=== PATIENT | female | born 1955 | race Caucasian/White ===

== ENCOUNTER 2017-07-23 08:44 | Emergency (ER) | payer BC ==
--- NOTE | 2017-07-23 08:59 | EDM.PDOC ---
ED HPI GENERAL MEDICAL PROBLEM - General Chief Complaint: Neuro Symptoms/Deficits Stated Complaint: R SIDE FACIAL NUMBNESS Time Seen by Provider: 07/23/17 08:54 Source of Information: Reports: Patient, Family (spouse) History Limitations: Reports: No Limitations - History of Present Illness INITIAL COMMENTS - FREE TEXT/NARRATIVE: 62-year-old female presents to the ED with nonspecific symptoms with right facial paresthesias particularly in the nasolabial fold on the right side and cheek. She then appreciated numbness and tingling in the distribution of third and fourth fingers of her right hand. She's been typing emails prior to the development of symptoms that occurred about 0815 hrs. this morning. No associated headache nausea vomiting. She feels that she has lost part of her peripheral vision on the right eye. Is normal. She did drink this morning with signs of choking. No history of CVA or hypertension. Patient has no associated headache has no history of migraines. Upon walking there was no problems with her balance. She did not require assistance to getting out of the car etc. no recent falls or closed head injuries. Onset: Today Onset Date: 07/23/17 Onset Time: 08:15 Duration: Minutes: Location: Reports: Face, Upper Extremity, Right (Right hand. The third and fourth fingers were suffering numbness and tingling.) Severity: Mild Improves with: Reports: None Worsens with: Reports: None Context: Denies: Activity, Exercise, Lifting, Sick Contact, Trauma, Other Associated Symptoms: Denies: No Other Symptoms, Confusion, Chest Pain, Cough, cough w sputum, Diaphoresis, Fever/Chills, Headaches, Loss of Appetite, Malaise , Nausea/Vomiting, Rash, Seizure, Shortness of Breath, Syncope, Weakness Treatments BASKET MENDER: Reports: Other (see below) (None.) - Related Data Allergies Allergy/AdvReac Type Severity Reaction Status Date / Time No Known Allergies Allergy Verified 07/23/17 09:12 Home Meds: Home Meds . [No Known Home Meds] 07/23/17 [History] Social & Family History - Living Situation & Occupation Living situation: Reports: ED ROS GENERAL - Review of Systems Review Of Systems: See Below Constitutional: Denies: Fever, Chills, Malaise, Weakness, Fatigue, Night Sweats , Diaphoresis, Decreased Appetite, Weight Loss HEENT: Reports: No Symptoms, Vision Change (She feels that there is some blurriness of her right lateral visual field.). Denies: Ear Discharge, Ear Pain , Eye Discharge, Eye Pain, Glasses, Hearing Loss, Nosebleed, Nose Pain, Rhinitis , Sinus Problem, Throat Pain, Throat Swelling Respiratory: Reports: No Symptoms Cardiovascular: Reports: No Symptoms Endocrine: Reports: No Symptoms GI/Abdominal: Reports: No Symptoms : Reports: No Symptoms Musculoskeletal: Reports: No Symptoms Skin: Reports: No Symptoms Neurological: Reports: Other (Came to the ED because of developing numbness and tingling in the right side of her face particularly in the nasolabial fold and over the right facial cheek. However sensation appeared to be intact on examination. Smile was normal. She also had some numbness and tingling in the third and fourth fingers of her right hand but she never tested to see if that would work distal type.) Psychiatric: Reports: No Symptoms Hematologic/Lymphatic: Reports: No Symptoms Immunologic: Reports: No Symptoms ED EXAM, NEURO - Physical Exam Exam: See Below Exam Limited By: No Limitations General Appearance: Alert, WD/WN, Anxious, Mild Distress Eye Exam: Bilateral Eye: Normal Fundi, Normal Inspection, PERRL Nose: Normal Inspection Throat/Mouth: Normal Inspection, Normal Lips, Normal Teeth, Normal Gums, Normal Oropharynx Head Exam: Atraumatic, Normocephalic Neck: Normal Inspection, Supple, Non-Tender, Full Range of Motion. No: Lymphadenopathy (L), Lymphadenopathy (R) Respiratory/Chest: No Respiratory Distress, Lungs Clear, Normal Breath Sounds, No Accessory Muscle Use Cardiovascular: Normal Peripheral Pulses, Regular Rate, Rhythm, No Edema, No Gallop, No JVD, No Murmur, No Rub GI/Abdominal: Normal Bowel Sounds, Soft, Non-Tender, No Organomegaly, No Distention, No Abnormal Bruit, No Mass, Pelvis Stable Neurological: Alert, Normal Mood/Affect, Normal Dorsiflexion, CN II-XII Intact, Normal Plantar Flexion, Normal Gait, Normal Reflexes, No Motor/Sensory Deficits , Oriented x 3, Other (Operator Assistant I Cementing strength is equal bilaterally). No: Abnormal Finger to Nose ( finger to nose assessment is normal. Rapid altering movements is normal there is no pronator drift.), Abnormal Motor Back Exam: Normal Inspection, Full Range of Motion Extremities: Normal Inspection, Normal Range of Motion, Non-Tender, No Pedal Edema Psychiatric: Normal Affect, Normal Mood Skin Exam: Warm, Dry, Intact, Normal Color, No Rash EKG INTERPRETATION EKG Date: 07/23/17 Time: 10:00 Rhythm: NSR Rate (Beats/Min): 75 Isabella: Normal P-Wave: Present QRS: Normal ST-T: Normal QT: Prolonged (mildly) EKG Interpretation Comments: Borderline ECG Course - Vital Signs Last Recorded V/S: Last Vital Signs Temp 36.9 C 07/23/17 09:09 Pulse 89 07/23/17 09:09 Resp 12 07/23/17 09:09 BP 163/109 H 07/23/17 09:09 Pulse Ox 99 07/23/17 09:09 - Orders/Labs/Meds Orders: Active Orders 24 hr Category Date Time Status EKG Documentation Completion [RC] STAT Care 07/23/17 09:10 Active Labs: Laboratory Tests 07/23/17 07/23/17 07/23/17 Range/Units 08:54 09:05 09:05 WBC 8.29 (3.98-10.04) K/mm3 RBC 4.51 (3.98-5.22) M/mm3 Hgb 14.0 (11.2-15.7) gm/L Hct 42.0 (34.1-44.9) % MCV 93.1 (79.4-94.8) fl MCH 31.0 (25.6-32.2) pg MCHC 33.3 (32.2-35.5) g/dl RDW Std Deviation 44.6 (36.4-46.3) fL Plt Count 286 (182-369) K/mm3 MPV 9.6 (9.4-12.3) fl Neutrophils % (Manual) 72 H (40-60) % Band Neutrophils % 0 (0-10) % Lymphocytes % (Manual) 23 (20-40) % Atypical Lymphs % 0 % Monocytes % (Manual) 2 (2-10) % Eosinophils % (Manual) 0 L (0.7-5.8) % Basophils % (Manual) 3 H (0.1-1.2) Platelet Estimate Adequate RBC Morph Comment Normal ESR (0-20) mm/hr PT 10.7 (8.0-13.0) SECONDS INR 0.98 APTT 25 (22-36) SECONDS Sodium (136-145) mEq/L Potassium (3.5-5.1) mEq/L Chloride (98-107) mEq/L Carbon Dioxide (21-32) mEq/L Anion Gap (5-15) BUN (7-18) mg/dL Creatinine (0.55-1.02) mg/dL Est Cr Clr Drug Dosing mL/min Estimated GFR (MDRD) (>60) mL/min BUN/Creatinine Ratio (14-18) Glucose (80-115) mg/dL POC Glucose 128 H (80-115) mg/dL Calcium (8.5-10.1) mg/dL Magnesium (1.8-2.4) mg/dl Total Bilirubin (0.2-1.0) mg/dL AST (15-37) U/L ALT (14-59) U/L Alkaline Phosphatase (46-116) U/L C-Reactive Protein (<1.0) mg/dL Total Protein (6.4-8.2) g/dl Albumin (3.4-5.0) g/dl Globulin gm/dL Albumin/Globulin Ratio (1-2) 07/23/17 07/23/17 Range/Units 09:05 09:05 WBC (3.98-10.04) K/mm3 RBC (3.98-5.22) M/mm3 Hgb (11.2-15.7) gm/L Hct (34.1-44.9) % MCV (79.4-94.8) fl MCH (25.6-32.2) pg MCHC (32.2-35.5) g/dl RDW Std Deviation (36.4-46.3) fL Plt Count (182-369) K/mm3 MPV (9.4-12.3) fl Neutrophils % (Manual) (40-60) % Band Neutrophils % (0-10) % Lymphocytes % (Manual) (20-40) % Atypical Lymphs % % Monocytes % (Manual) (2-10) % Eosinophils % (Manual) (0.7-5.8) % Basophils % (Manual) (0.1-1.2) Platelet Estimate RBC Morph Comment ESR 20 (0-20) mm/hr PT (8.0-13.0) SECONDS INR APTT (22-36) SECONDS Sodium 136 (136-145) mEq/L Potassium 4.0 (3.5-5.1) mEq/L Chloride 101 (98-107) mEq/L Carbon Dioxide 29 (21-32) mEq/L Anion Gap 10.0 (5-15) BUN 13 (7-18) mg/dL Creatinine 0.8 (0.55-1.02) mg/dL Est Cr Clr Drug Dosing 59.54 mL/min Estimated GFR (MDRD) > 60 (>60) mL/min BUN/Creatinine Ratio 16.3 (14-18) Glucose 125 H (80-115) mg/dL POC Glucose (80-115) mg/dL Calcium 9.4 (8.5-10.1) mg/dL Magnesium 1.9 (1.8-2.4) mg/dl Total Bilirubin 0.3 (0.2-1.0) mg/dL AST 18 (15-37) U/L ALT 23 (14-59) U/L Alkaline Phosphatase 67 (46-116) U/L C-Reactive Protein < 0.2 (<1.0) mg/dL Total Protein 7.6 (6.4-8.2) g/dl Albumin 4.0 (3.4-5.0) g/dl Globulin 3.6 gm/dL Albumin/Globulin Ratio 1.1 (1-2) - Radiology Interpretation Free Text/Narrative:: 62-year-old female presents to the ED with numbness and tingling in the right side of her face particularly the nasolabial fold and over her facial cheek. This came on suddenly associated with some numbness and tingling in her hands particular third and fourth fingers that she is aware of. He symptoms started half an hour prior to coming to the ED. No associated headache slurred speech visual changes although she states she has some peripheral visual field defect in her right eye. This was not apparent on visual field examination. No associated headache nausea vomiting. No recent fall or closed head injuries. Neuro examination is completely 100% normal. There is no motor power or well- defined sensory deficits identified. Plan routine labs. CT head ordered by triage nurse's - Re-Assessments/Exams Free Text/Narrative Re-Assessment/Exam: 07/23/17 09:25 CT head reveals mild senescent changes with diminished density within the prep periventricular white matter bilaterally compatible with small vessel ischemic demyelination. No other abnormalities were identified there is no intracranial bleeding or mass effect. 07/23/17 10:32) visual field defect is gone. Paresthesias are for the most part gone as well. She is developing a diffuse primarily occipital headache at this time. No associated nausea or vomiting. 07/23/17 10:33 Labs show a normal white count of 8.29 with 72% neutrophils and no bands. Hemoglobin is 14.0 with hematocrit of 42.0. Platelet count is 286, 000. Sedimentation rate is 20. PT is 10.7 with an INR of 0.98. PTT is 25. Sodium is 136 with a potassium of 4.0 chloride 101 bicarbonate 29 and a gap is 10.0 with a BUN of 13. Creatinine is 0.8. GFR is greater than 60. Glucose is 125 bedside glucose was 128. Calcium is 9.4 with magnesium of 1.9. Liver function normal. CRP is less than 0.2. 07/23/17 11: Repeated her neuro examination is completely normal now. She still has a bit of tingling in her fingertips third and fourth of the right hand but facial paresthesias are gone. She does have a vague pressure in the back of her head but not bad enough to take Tylenol or Motrin for. She does have a past history of migraines where she is to use visual field deficits and developed scotomata. This was in her 20s. She has not suffered from migraines since that time however. At this time she will be discharged to home. 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 She will follow-up if she has any further similar problems. 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 Associated numbness and tingling (which we call paresthesias )in your right hand third and fourth finger. Also appreciable right lateral visual field deficit initially. All of these symptoms cleared up over time. This suggests that you had migraine headacche equivalent symptoms with development of only a mild occipital headache. CT scan of the brain is normal. Heart tracing was normal and all lab work proved to be normal. Therefore at this time suggest taking it easy the rest of today. Monitor diet over the last 12-24 hours for a dietary trigger such as red food dyes. Red wine, red Gatorade ,red drinking boxes--cran raspberry etc, or red cranberry juice etc. red food dyes can be a comon trigger for these type of symptoms. Also nitrates found and high concentration is smoked meat such as salami pepperoni meat lovers pizza smoked deli meats hot buzz sticks be jerky's etc. Monosodium glutamate done and high concentration and Melina soups and junk foods like Cheetos, cheesy's ,chips etc. can sometimes be a culprit as well. Dark chocolate large amount such as a whole her she struck a bar may precipitate similar type symptoms age cheese i.e. blocked cheese that she would actually have to cut up contains high consultations of tear is seen which is also bone and red wine that can precipitate a headache within 12-24 hours of eating the events of substance. Neurological exam was completely normal otherwise with no deficits identified Therefore no evidence of any stroke symptoms were identified. Stability of injury to the facial nerve from cold air does exist independent that occurs it will come back again off and on for the next 3 or 4 days and then go away. Follow-up with personal care doctor if any further problems occur. - My Orders Last 24 Hours: My Active Orders 07/23/17 09:10 EKG Documentation Completion [RC] STAT - Assessment/Plan Last 24 Hours: My Active Orders 07/23/17 09:10 EKG Documentation Completion [RC] STAT
--- NOTE | 2017-07-23 09:21 | CT ---
Head CT Technique: Multiple axial sections through the brain were obtained. Intravenous contrast was not utilized. Comparison: No prior head CT exam, previous MRI brain study of 12/23/09. Findings: Ventricles along with basal cisterns and sulci over the convexities are within normal limits for the patient's age. Mild areas of diminished density are noted within the periventricular white matter which is compatible with small vessel ischemic demyelination change. No other abnormal parenchymal densities are seen. No evidence of intracranial hemorrhage. No midline shift or mass effect is seen. Bone window settings were reviewed which shows no acute calvarial abnormality. Visualized sinuses are clear. Impression: 1. Mild senescent change as noted above. 2. Nothing acute is identified on noncontrast head CT exam. Diagnostic code #1
== END 2017-07-23 11:52 | disposition home or self-care (01) ==
LOC: JD.ED 08:44
DX: G43.109 Migraine with aura, not intractable, without status migrainosus (principal)
CPT/HCPCS: 36415; 70450; 70450-26; 80053; 82962; 83735; 85025; 85610; 85652; 85730; 86140; 93005; 93010; 99284-25; 99285-25